=== PATIENT | female | born 1930 | race Caucasian/White ===

== ENCOUNTER → 2016-11-18 | Outpatient (CLI) | payer MEDICARE ==
[2015-10-10 18:56] VITALS: BP 170/77
[~2016-11-18] MED LIST: ACET-58 PO; ASPI-252 PO; CALC500T50 PO; CHLO10CA5 PO; CHOL20004 PO; CITA40TA5 PO; CLOP75TA27 PO; DIGO125T PO; DOCU50CA9 PO; GUAI100L3 PO; HYDR-2762 PO; Hydrochlorothiazide PO; INSU100C4 SQ; INSU100V8 SQ; IPRA3AMP IH; LISI40TA PO; LOSA100T6 PO; LOSA1TAB17 PO; MAGN2400 PO; METO50TA10 PO; MULT1TAB77 PO; OMEG300C PO; OMEP40CA5 PO; PANT40TA3 PO; PNV51CAP PO; POLY17PO5 PO; RISP0.253 PO; SIME80TA PO; TOLT4CAP PO; TRAM-29 PO; TRAM50TA PO; TRAV5DRO OP
[2016-11-18 05:52] LABS: CALCIUM 8.9 mg/dL (8.5-10.1); CREATININE 1.4 mg/dL (0.6-1.0); GFR 35.7; POTASSIUM 3.9 mmol/L (3.5-5.1)
== END | disposition home or self-care (01) ==
LOC: SPEC 05:00
PROVIDERS: ATTEND Family Medicine
DX: E11.9 Type 2 diabetes mellitus without complications (principal); E87.6 Hypokalemia
CPT/HCPCS: 36415; 80048; 83036

== ENCOUNTER → 2017-01-06 | Outpatient (CLI) | payer MEDICARE ==
[2015-10-10 18:56] VITALS: BP 170/77
[~2017-01-06] MED LIST changes: +POLY17PO29 PO; -POLY17PO5 PO
[2017-01-06 07:16] LABS: BASO # 0.1 x10^3/uL (0.0-0.2); BASO % 1 % (0-3); EOS % 3 % (0-3); HEMATOCRIT 45.3 % (36.0-47.0); HEMOGLOBIN 14.4 g/dL (12.0-15.5); LYMPH # 2.9 x10^3/uL (1.0-4.8); LYMPH % 30 % (24-48); MEAN CORPUSCULAR HEMOGLOBIN 28 pg (25-35); MEAN CORPUSCULAR HGB CONC 32 g/dL (31-37); MEAN CORPUSCULAR VOLUME 87 fL (79-100); MONO % 8 % (0-9); NEUT % 58 % (31-73); PLATELET COUNT 268 x10^3/uL (140-400); RED BLOOD COUNT 5.21 x10^6/uL (3.50-5.40); RED CELL DISTRIBUTION WIDTH 13.4 % (11.5-14.5); WHITE BLOOD COUNT 9.8 x10^3/uL (4.0-11.0)
[2017-01-06 08:05] LABS: ANION GAP 10 (6-14); BLOOD UREA NITROGEN 27 mg/dL (7-20); CALCIUM 9.3 mg/dL (8.5-10.1); CARBON DIOXIDE 32 mmol/L (21-32); CHLORIDE 104 mmol/L (98-107); CREATININE 1.3 mg/dL (0.6-1.0); GFR 38.9; GLUCOSE 110 mg/dL (70-99); POTASSIUM 3.9 mmol/L (3.5-5.1); SODIUM 146 mmol/L (136-145)
[2017-01-06 10:24] LABS: BILIRUBIN,URINE NEGATIVE (NEG); GLUCOSE,URINE NEGATIVE (NEG); NITRITE,URINE NEGATIVE (NEG); PH,URINE 6.5; PROTEIN,URINE NEGATIVE (NEG-TRACE); UROBILINOGEN,URINE 0.2 mg/dL (0.2 mg/dL)
[2017-01-06 10:38] LABS: BACTERIA,URINE MODERATE /HPF (0-FEW); RBC,URINE OCC /HPF (0-2); SQUAMOUS EPITHELIAL CELL,UR MANY /LPF
== END | disposition home or self-care (01) ==
LOC: SPEC 07:01
PROVIDERS: ATTEND Family Medicine
DX: N39.0 Urinary tract infection, site not specified (principal); N39.41 Urge incontinence; E11.9 Type 2 diabetes mellitus without complications; R41.0 Disorientation, unspecified; I50.9 Heart failure, unspecified
CPT/HCPCS: 36415; 80048; 80162; 81001; 83036; 85027; 87086

== ENCOUNTER → 2017-03-24 | Outpatient (CLI) | payer BC ==
[2015-10-10 18:56] VITALS: BP 170/77
[~2017-03-24] MED LIST changes: -CALC500T50 PO; +CALC500T54 PO; -CHOL20004 PO; +CHOL200074 PO; -CLOP75TA27 PO; +CLOP75TA57 PO; -TRAM-29 PO; +TRAM-48 PO
[2017-03-24 13:04] LABS: BILIRUBIN,URINE NEGATIVE (NEG); GLUCOSE,URINE NEGATIVE (NEG); NITRITE,URINE NEGATIVE (NEG); PROTEIN,URINE NEGATIVE (NEG-TRACE); UROBILINOGEN,URINE 0.2 mg/dL (0.2 mg/dL)
[2017-03-24 13:13] LABS: BACTERIA,URINE 0 /HPF (0-FEW); SQUAMOUS EPITHELIAL CELL,UR FEW /LPF
== END | disposition home or self-care (01) ==
LOC: SPEC 12:51
PROVIDERS: ATTEND Family Medicine
DX: N39.0 Urinary tract infection, site not specified (principal)
CPT/HCPCS: 81001; 87086